=== PATIENT | female | born 1965 | race Hispanic/Latino ===

== ENCOUNTER 2016-11-12 13:30 | Emergency (ER) | payer OTHER ==
[~2016-11-12] VITALS: Ht 157.5 cm; Wt 67.9 kg
[~2016-11-12 13:30] MED LIST: NEXIUM20 MG PO; ULTRAM50 MG PO; ZANTAC150 MG PO; ZYRTEC10 M3 PO
[2016-11-12 14:10] LABS: MCH 31.9 PG (29.0-34.0); MCHC 32.8 G/DL (30.0-36.0); MCV 97.3 FL (83-99); MEAN PLAT.VOLUME 9.7 uM^3 (9.5-12.4); PLATELET COUNT 269 K/uL (156-360); RBC DIS.WIDTH-CV 13.2 % (11.8-14.6); RBC DIS.WIDTH-SD 47.6 % (39-53); RED BLOOD COUNT 4.11 M/uL (3.80-5.20)
[2016-11-12 14:21] LABS: CHLORIDE 105 mEq/L (99-109); POTASSIUM 4.7 mEq/L (3.7-5.4); SODIUM 142 mEq/L (136-147)
[2016-11-12 14:22] LABS: GLUCOSE 118 mg/dL (70-99)
[2016-11-12 14:24] LABS: ANION GAP 10 MEQ/L (2-14)
[2016-11-12 14:27] LABS: GFR ESTIMATE (CALCULATED) > 59 mL/min/; UREA NITROGEN (BUN) 13 mg/dL (9-23)
[2016-11-12 14:30] LABS: TROP-I INTERPRETATION NEGATIVE; TROPONIN-I < 0.01 ng/mL (0.0-0.30)
[2016-11-12] MEDS ORDERED: FLEXERIL10 MG PO (14:55)
[2016-11-12] MEDS ORDERED: EFFEXOR75 MG PO (14:55)
[2016-11-12 15:28] LABS: D-DIMER ELISA < 150.00 ng/mLDDU (<230)
[2016-11-12 16:05] VITALS: BP 137/88
== END 2016-11-12 16:06 | disposition home or self-care (01) ==
LOC: EME 13:30
PROVIDERS: Emergency Medicine
DX: J06.9 Acute upper respiratory infection, unspecified (principal); K21.9 Gastro-esophageal reflux disease without esophagitis; Z88.0 Allergy status to penicillin
CPT/HCPCS: 71020; 80048; 84484; 84703; 85027; 85379; 93005; 99281; 99284